=== PATIENT | female | born 1990 | race Caucasian/White ===

== ENCOUNTER 2024-10-11 19:47 | Emergency (ER) | payer MEDICAID ==
[2024-10-11] MEDS: Take Home: Sulfamethoxazole/Trimethoprim 800-160 MG Tab, 6 Tab Pack PO ONE (20:13)
[2024-10-11] MEDS: Take Home: Naproxen 500 MG Tab, 4 Tab Pack PO ONE (20:13)
== END 2024-10-11 20:15 | disposition home or self-care (01) ==
LOC: VM.ED 19:47
DX: L03.113 Cellulitis of right upper limb (principal); L03.114 Cellulitis of left upper limb
CPT/HCPCS: 99283; A9270